=== PATIENT | male | born 1985 | race Caucasian/White ===

== ENCOUNTER 2016-10-18 17:17 | Emergency (ER) | payer SELFPAY ==
[~2016-10-18] VITALS: Ht 188 cm; Wt 57.6 kg
[~2016-10-18 17:17] MED LIST: FLX10 PO; LRT5 PO; REVIEWED
[2016-10-18 17:19] VITALS: BP 135/83; PULSE 91; TEMP 36.9; O2SAT 97; Ht 188 cm; Wt 57.6 kg
[2016-10-18] MEDS ORDERED: NORCO 5/325MG HOME PACK PO ONE (17:30)
[2016-10-18] MEDS ORDERED: PENICILLIN HOME PACK 250MG (4)BTL PO ONE (17:30)
[2016-10-18] MEDS ORDERED: HYDR-5688 PO (17:46)
[2016-10-18] MEDS ORDERED: PENI-82 PO (17:46)
--- NOTE | 2016-10-18 17:47 | EMERGENCY ROOM VISIT NOTE ---
ED Visit Note First contact with patient: 17:22 CHIEF COMPLAINT: Toothache HISTORY OF PRESENT ILLNESS: This 31-year-old male patient presented to the emergency department ambulatory with a progressive toothache for the past 2 days. The patient reports that his left lower back molar broke off a few years ago. He did not have any problems with the teeth until a few days ago. He states that he has had severe pain in the tooth which is been waking him up from sleep. The pain is now steady and severe and radiates to the face. They rate their pain a 10/10 and the ibuprofen and Tylenol they have been taking has not relieved the pain. The patient took a leftover Vicodin today without relief of the pain. Denies facial swelling or fever. The patient denies any discharge from the mouth. The patient does not have a dentist. REVIEW OF SYSTEMS: A 6 system review of systems was completed with positives and pertinent negatives listed in the HPI. ALLERGIES: No known drug allergies MEDICATIONS: No chronic medications PMH: No significant past medical history. SOCIAL HISTORY: The patient lives locally with his sister. He is a smoker. PHYSICAL EXAM: Vitals are noted on the nurse's note and reviewed by myself. Vital signs stable. Temperature 36.9C orally. GENERAL: This is a 31-year-old male, in no acute distress, nondiaphoretic, well-developed well-nourished. Mouth: The left lower back molar tooth is very carious and the gum is swollen and tender around it, without any discharge or signs of an abscess. The remainder of the pharynx and tonsils are without erythema, edema, or exudate. The airway is patent. There is no facial swelling, cervical or submandibular lymphadenopathy. The patient appears uncomfortable and in pain. The patient has overall poor dental hygiene. EARS: External auditory canals clear, tympanic membranes pearly flaherty without erythema or effusion bilaterally. ED COURSE: The patient was evaluated as above. He does have multiple very carious teeth. He was given home packs and prescriptions of penicillin and Glover. The [place] prescription drug monitoring program was queried and no red flags were identified. Case management spoke with the patient and gave him information for [employer] in medicine. The patient did present with his sister, who stated she was planning to go to the medical donation professional office and see if the patient could use her [place]. He understands the need to follow up with a dentist for definitive evaluation and care. He will return for worsening symptoms. He verbalized understanding of my assessment and treatment plan and was discharged home in good condition. DIAGNOSIS: Odontalgia Current/Historical Medications Scheduled Cyclobenzaprine Hcl (Flexeril *), 10 MG PO TID Hydrocodone/Acetaminophen 5MG/500MG (Vicodin 5MG/500MG), 1-2 TABLET PO Q4-6HR PRN Miscellaneous Medications None (Patient States No Home Meds) [Reviewed 10/07/09] Allergies Uncoded Allergies: NKDA (Allergy, Unknown, 05/30/05) Vital Signs Date Time Temp Pulse Resp B/P Pulse Ox O2 Delivery O2 Flow Rate FiO2 10/18/16 17:19 36.9 91 18 135/83 97 Room Air Departure Information Impression Primary Impression: Dental caries Dispostion Home / Self-Care Condition GOOD Prescriptions Penicillin V Potassium (Veetids) 500 Mg Tab 500 MG PO QID, #40 TAB Prov: Juana Thompson PA-C 10/18/16 Hydrocodone/Acetaminophen 5MG/325MG (Glover 5MG/325MG) Tab 1-2 TABLET PO Q4H Y for Pain, #10 TAB For Initial Treatment Prov: Juana Thompson PA-C 10/18/16 Referrals No Doctor, Assigned (PCP) Patient Instructions My [facility] Additional Instructions You have been treated in the Emergency Department for Dental Pain. You have been prescribed Glover to be used for pain control. This is a narcotic medication. You cannot drive or consume alcohol while on this medicine. This medicine should only be used for pain that cannot be controlled with over-the- counter pain medicines. You were prescribed penicillin to be taken as prescribed. This is an antibiotic. All antibiotics have the potential to cause diarrhea. Stop this medication and contact a medical provider if you were to develop any significant adverse side effects including: wheezing, shortness of breath, passing out, vomiting, or a diffuse rash. Always take antibiotics as directed and COMPLETE the ENTIRE course regardless of the improvement of your symptoms. For pain control, you can use the following [id number] medicines (if >12 yo): - Regular strength (325mg/tab) Tylenol (acetaminophen) 2 tabs every 4-6 hours as needed. Do not exceed 12 tablets in a 24 hour period. Avoid taking more than 4 grams (4000 mg) of Tylenol per day. This includes any other sources of acetaminophen you may take on a regular basis. - Regular strength (200 mg/tab) Advil (ibuprofen) 1-2 tabs every 4-6 hours as needed. Do not exceed a dose of 3200 mg per day. Refrain from smoking cigarettes or using chewing tobacco until you have been evaluated by your dentist. Keeping beverages lukewarm and consuming soft foods can decrease your pain. Warm compresses over the affected area may offer some relief. You MUST seek evaluation of your dental pain by a dentist following your visit to the Emergency Department. The Emergency Department is not capable of treating dental issues long-term. You should call your dentist as soon as possible to make an appointment for evaluation of your dental pain. Return to the emergency department if you develop the following symptoms despite treatment course outlined above: fever, intractable pain, increased redness, swelling, or purulent discharge.
== END 2016-10-18 17:55 | disposition home or self-care (01) ==
LOC: C.EDB 17:17 → C.EDD 17:55
DX: K02.9 Dental caries, unspecified (principal); F17.200 Nicotine dependence, unspecified, uncomplicated

== ENCOUNTER 2016-12-24 19:20 | Emergency (ER) | payer OTHER ==
[~2016-12-24] VITALS: Ht 188 cm; Wt 64.0 kg
[~2016-12-24 19:20] MED LIST changes: -FLX10 PO; +HYDR-5688 PO; -LRT5 PO; +PENI-82 PO; -REVIEWED
[2016-12-24 19:35] VITALS: TEMP 36.9; Ht 188 cm; Wt 64.0 kg
[2016-12-24] MEDS ORDERED: KETOROLAC TROMETHAMINE 60 MG/2 ML VIAL IM STA (19:47)
--- NOTE | 2016-12-24 20:24 | DIAGNOSTIC IMAGING REPORT ---
L-SPINE MIN 4 VIEWS ROUTINE CLINICAL HISTORY: Low back pain. Trauma. COMPARISON STUDY: 10/07/2009 FINDINGS: No fractures or dislocations are visualized. There are 5 lumbar type vertebral bodies. IMPRESSION: Unremarkable conventional radiographic evaluation the lumbar spine. No fractures are visualized. Electronically signed by: Otoniel Muse M.D. 12/24/2016 8:22 PM Dictated Date/Time: 12/24/2016 8:21 PM
[2016-12-24] MEDS ORDERED: NAPR-1169 PO (20:59)
[2016-12-24] MEDS ORDERED: CYCL10TA6 PO (20:59)
--- NOTE | 2016-12-24 20:59 | EMERGENCY ROOM VISIT NOTE ---
ED Visit Note First contact with patient: 19:37 CHIEF COMPLAINT: Low back pain HISTORY OF PRESENT ILLNESS: This 31-year-old male patient presents to the emergency department ambulatory complaining of pain in the low back which began one week ago. The patient states that he slipped and fell down a few steps one week ago and has had pain in the lower back since then. The pain is constant and worse with movement. The patient notes the pain as sharp and a 10/10. The patient has taken Tylenol and ibuprofen without relief of the pain. The patient denies any loss of control of their bowel or bladder functions. There has been no leg numbness or weakness, and no change in sensation. No nausea or vomiting or abdominal pain. No chest pain or shortness of breath. The patient has not had prior back injuries. No dysuria or increased urinary frequency. REVIEW OF SYSTEMS: A review of systems was performed with positives and pertinent negatives listed in the history of present illness. All other systems were reviewed and are negative. ALLERGIES: No known drug allergies MEDICATIONS: No chronic medications PMH: No significant past medical history. SOCIAL HISTORY: The patient lives locally with his sister. He is a smoker. He denies alcohol use. PHYSICAL EXAM: VITALS: Vitals are noted on the nurse's note and reviewed by myself. Vital signs stable. GENERAL: This is a 31-year-old male, in no acute distress, nondiaphoretic, well- developed well-nourished. SKIN: The skin was without rashes, erythema, edema, or bruising. Capillary refill less than 2 seconds. NECK: Supple without nuchal rigidity. No cervical spine tenderness. No paraspinous muscle tenderness. HEART: Regular rate and rhythm without murmurs gallops or rubs. LUNGS: Clear to auscultation bilaterally without wheezes, rales or rhonchi. ABDOMEN: Positive bowel sounds x 4. Normal tympanic percussion. Soft, nontender, without masses or organomegaly. Tavera sign negative. MUSCULOSKELETAL: No muscle atrophy, erythema, or edema noted of the back. There is no tenderness over the lumbar spinous processes. There is vague tenderness over the paraspinous muscles bilaterally. There is no tenderness over the thoracic spine or paraspinous muscles. There are no muscle spasms present. The patient is slow to move around with maximum tenderness with flexion. Negative straight leg raise test. NEURO: Patient was alert and oriented to person place and time. Normal sensation to light and sharp touch. Deep tendon reflexes 2+ in the lower extremities. Dorsalis pedis pulse 2+ bilaterally. Strength 5/5 and equal in the bilateral lower extremities. RADIOGRAPHIC FINDINGS: L-SPINE MIN 4 VIEWS ROUTINE CLINICAL HISTORY: Low back pain. Trauma. COMPARISON STUDY: 10/07/2009 FINDINGS: No fractures or dislocations are visualized. There are 5 lumbar type vertebral bodies. IMPRESSION: Unremarkable conventional radiographic evaluation the lumbar spine. No fractures are visualized. EMERGENCY DEPARTMENT COURSE: The patient was evaluated as above. X-rays of the lumbar spine were performed and returned radiology with no acute findings. The patient was given 60 mg Toradol with good relief of his pain. He will be prescribed Naprosyn and Flexeril at home. He was instructed to follow-up with his primary care provider as needed. He verbalized understanding of my assessment and treatment plan and was discharged home in good condition. DIAGNOSIS: Lumbar contusion Current/Historical Medications Scheduled Cyclobenzaprine Hcl (Flexeril), 10 MG PO TID Naproxen (Naprosyn), 500 MG PO BID Allergies Coded Allergies: No Known Allergies (Unverified , 12/24/16) Vital Signs Date Time Temp Pulse Resp B/P Pulse Ox O2 Delivery O2 Flow Rate FiO2 12/24/16 21:35 76 18 105/62 99 12/24/16 19:35 36.9 94 20 111/70 97 Room Air Medications Administered Medications (Trade) Dose Ordered Sig/Joaquina Route Start Time Stop Time Status Last Admin Dose Admin Ketorolac Tromethamine (Toradol Inj) 60 mg NOW STAT IM 12/24/16 19:47 12/24/16 19:48 DC 12/24/16 20:35 60 MG Cyclobenzaprine HCl (FLEXERIL 10MG Home Pack) 1 homepack UD ONCE PO 12/24/16 21:00 12/24/16 21:01 DC 12/24/16 21:27 1 HOMEPACK Departure Information Impression Primary Impression: Lumbar back pain Dispostion Home / Self-Care Condition GOOD Prescriptions Naproxen (Naprosyn) 500 Mg Tab 500 MG PO BID for 7 Days, #14 TAB Prov: Juana Thompson ., ARTURO 12/24/16 Cyclobenzaprine Hcl (FLEXERIL) 10 Mg Tab 10 MG PO TID for 5 Days, #15 TAB Prov: Juana Thompson .ARTURO 12/24/16 Referrals No Doctor, Assigned (PCP) Patient Instructions My [facility] Additional Instructions You have been treated in the Emergency Department for Back Pain. Naprosyn twice daily as prescribed. You have been prescribed Flexeril (cyclobenzaprine) 1-2 tabs orally, three times per day. Do NOT exceed 30 mg (6 tabs) per day. Take your first dose at bedtime as it can make you drowsy. Always take all medications as prescribed. For pain control, you can use the following [id number] medicines (if >12 yo): - Regular strength (325mg/tab) Tylenol (acetaminophen) 2 tabs every 4-6 hours as needed. Do not exceed 12 tablets in a 24 hour period. Avoid taking more than 4 grams (4000 mg) of Tylenol per day. This includes any other sources of acetaminophen you may take on a regular basis. If this is an acute injury, ice can be applied to the area of pain for the first 3 days to help decrease pain and inflammation. After the first 3 days, a heating pad can be used over the area for continued soothing relief. You should schedule a follow-up appointment in 2-3 days with your Primary Care Provider for further evaluation and treatment of your back pain. Return to the Emergency Department if your current symptoms worsen despite treatment course outlined above, or if you develop any of the following symptoms : intractable pain despite aforementioned treatment course, loss of control of your bowel or bladder, numbness or tingling in your groin, or development of a fever. Problem Qualifiers Primary Impression: Lumbar back pain Chronicity: acute Back pain laterality: bilateral Sciatica presence: without sciatica Qualified Codes: M54.5 - Low back pain
[2016-12-24] MEDS ORDERED: FLEXERIL HOME PACK 10 MG VIAL PO ONE (21:00)
[2016-12-24 21:35] VITALS: BP 105/62; PULSE 76; O2SAT 99
[2017-08-20] MEDS ORDERED: ACET-1182 PO (17:49)
[2017-08-20] MEDS ORDERED: NPR500 PO (18:00)
== END 2016-12-24 21:35 | disposition home or self-care (01) ==
LOC: C.EDB 19:21 → C.EDD 21:35
DX: M54.5 Low back pain (principal)